=== PATIENT | female | born 1995 ===

== ENCOUNTER 2021-11-17 05:24 | Inpatient (IN) | payer MEDICAID ==
[2021-11-17] MEDS ORDERED: Sodium Chloride 0.9% 2.5 ML Syringe FLUSH PRN (05:37)
[2021-11-17] MEDS ORDERED: Citric Acid/Sodium Citrate Solution 30 ML Cup PO ONE (05:37)
[2021-11-17] MEDS ORDERED: Sodium Chloride 0.9% 20 ML SDV IV PRN (05:37)
[2021-11-17] MEDS ORDERED: Ondansetron 4 MG/2 ML SDV IVPUSH PRN ×3 (05:37→10:01)
[2021-11-17] MEDS ORDERED: Sodium Chloride 0.9% 10 ML Syringe FLUSH PRN (05:37)
[2021-11-17] MEDS ORDERED: Lactated Ringers 1,000 ML IV SCH ×2 (05:45→07:45)
[2021-11-17] MEDS ORDERED: Oxytocin/0.9 % Sodium Chloride 30 UNIT/500 ML BAG IV SCH (05:45)
[2021-11-17] MEDS ORDERED: ceFAZolin 1 GM Vial ONE (06:47)
[2021-11-17] MEDS ORDERED: Dexmedetomidine 200 MCG/2 ML SDV ONE (06:47)
[2021-11-17] MEDS ORDERED: Oxytocin 10 Units/1 ML SDV ONE (06:47)
[2021-11-17] MEDS ORDERED: Ondansetron 4 MG/2 ML SDV ONE (06:47)
[2021-11-17] MEDS ORDERED: Dexamethasone 4 MG/ML 5 ML MDV ONE (06:47)
[2021-11-17] MEDS ORDERED: Water For Injection, Sterile 40 ML ONE (06:47)
[2021-11-17] MEDS ORDERED: Morphine PF 10 MG/10 ML SDV ONE (06:49)
[2021-11-17] MEDS ORDERED: Octyl 2-Cyanoacrylate 1 Tube ONE (07:27)
[2021-11-17] MEDS ORDERED: Lanolin 100% Cream 7 GM Tube TOP PRN (07:37)
[2021-11-17] MEDS ORDERED: Misoprostol 200 MCG Tab RECTAL PRN (07:37)
[2021-11-17] MEDS ORDERED: Oxytocin 10 Units/1 ML SDV IM PRN (07:37)
[2021-11-17] MEDS ORDERED: diphenhydrAMINE 50 MG/ML SDV IVPUSH PRN ×2 (07:37→10:01)
[2021-11-17] MEDS ORDERED: Tranexamic Acid 1,000 MG in Sodium Chloride 0.9% 100 ML IV PRN (07:37)
[2021-11-17] MEDS ORDERED: Acetaminophen/oxyCODONE 325-5 MG Tab PO PRN (07:37)
[2021-11-17] MEDS ORDERED: Methylergonovine 0.2 MG/1 ML Amp IM PRN (07:37)
[2021-11-17] MEDS ORDERED: Bisacodyl 10 MG Supp RECTAL PRN (07:37)
[2021-11-17] MEDS ORDERED: Nalbuphine HCl 10 MG/ 1ML Amp IVPUSH PRN (09:58)
[2021-11-17] MEDS ORDERED: ePHEDrine 50 MG/ML SDV IVPUSH PRN (10:00)
[2021-11-17] MEDS ORDERED: fentaNYL 100 MCG/2 ML SDV IVPUSH PRN (10:01)
[2021-11-17] MEDS: Ketorolac 30 MG/ML SDV IVPUSH SCH ×2 (11:04→17:48)
[2021-11-17] MEDS ORDERED: Lidocaine 2% 5 ML SDV ONE (20:03)
[2021-11-17] MEDS: Docusate Sodium 100 MG Cap PO SCH (21:04)
[2021-11-18] MEDS: Ketorolac 30 MG/ML SDV IVPUSH SCH ×3 (00:09→12:12)
[2021-11-18] MEDS: Docusate Sodium 100 MG Cap PO SCH ×2 (09:49→21:37)
[2021-11-18] MEDS ORDERED: Ketorolac 30 MG/ML SDV ONE (11:55)
[2021-11-18] MEDS: Ibuprofen 800 MG Tab PO PRN (18:33)
[2021-11-18] MEDS: Acetaminophen/oxyCODONE 325-5 MG Tab PO PRN (21:38)
[2021-11-19] MEDS: Ibuprofen 800 MG Tab PO PRN (03:13)
[2021-11-19] MEDS: Docusate Sodium 100 MG Cap PO SCH ×2 (08:31→08:32)
[2021-11-19] MEDS: Acetaminophen/oxyCODONE 325-5 MG Tab PO PRN (08:31)
[2021-11-19 09:32] VITALS: BP 111/66; PULSE 72
== END 2021-11-19 11:15 | disposition home or self-care (01) | DRG 788 ==
LOC: MW.OB 05:24
PROVIDERS: ADMIT Obstetrics & Gynecology; ATTEND Obstetrics & Gynecology
PROC: 10D00Z1 Extraction of Products of Conception, Low, Open Approach (ICD-10-PCS; principal; 2021-11-17)
DX: O34.211 Maternal care for low transverse scar from previous cesarean delivery (principal); Z3A.39 39 weeks gestation of pregnancy; Z37.0 Single live birth; O99.214 Obesity complicating childbirth
CPT/HCPCS: 36415; 51702; 59025; 85014; 85018; 85027; 86592; 86850; 86900; 86901; A9270-GY; J0690; J1100; J1885; J2274; J2370; J2405; J2590; J7120